=== PATIENT | female | born 1990 | race Caucasian/White ===

== ENCOUNTER 2018-04-17 10:36 | Emergency (ER) | payer OTHER ==
[2018-04-17 10:47] VITALS: BP 95/59
--- NOTE | 2018-04-17 11:05 | ED Physician Documentation ---
General Adult - HISTORIAN Historian: patient - HPI Stated Complaint: Headache Chief Complaint: General Adult Additional Information: 27yo female who states that for the last 10 days she has been having some generalized intermittent abdominal pain that seems to move around. Patient states that her last BM was yesterday and was normal. No N/V/D noted. No blood in stools. Patient has also been having some headaches, bilateral, intermittent. No change in motor or sensory noted. No precipitating or modifying factors for headaches or abdominal pain noted. 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 Works in a kitchen at the [employer] and is concerned that she might be getting dehydrated or to hot. Onset: days ago (10 days) Timing: still present Severity: mild Modifying Factors: none Context: no precipitating factors Further Comments: no - ROS CONST: no problems. denies: fever (has felt hot but no fever noted), sweating, weakness CVS/RESP: cough (mild nonproductive). denies: chest pain, shortness of breath GI/: abdominal pain. denies: problems urinating, vomiting, nausea, diarrhea, black stools MS/SKIN/LYMPH: joint pain. denies: calf pain - PAST HX Past History: none Other History: none Surgeries/Procedures: none Immunizations: referred to PCP Allergies/Adverse Reactions: Allergies Allergy/AdvReac Type Severity Reaction Status Date / Time No Known Allergies Allergy Verified 04/17/18 10:55 Home Medications: Ambulatory Orders Medication Instructions Recorded NK [NK] 04/17/18 - SOCIAL HX Smoking History: greater than 1 pack/day (1ppd) Alcohol Use: none Drug Use: none - FAMILY HX Family History: No - VITAL SIGNS Vital Signs: Vital Signs Temp Pulse Resp BP Pulse Ox 98.2 F 85 16 95/59 85 L 04/17/18 10:40 04/17/18 10:40 04/17/18 10:40 04/17/18 10:40 04/17/18 10:40 - REVIEWED ASSESSMENTS Nursing Assessment Reviewed: Yes Vitals Reviewed: Yes ED Results Lab/Radiology - Orders Orders: ED Orders Category Date Time Status CBC/PLATELET/DIFF Routine Lab 04/17/18 Ordered CMP Routine Lab 04/17/18 Ordered URINALYSIS Routine Lab 04/17/18 Uncollected General Adult Physical Exam - PHYSICAL EXAM GENERAL APPEARANCE: mild distress EENT: eye inspection normal, ENT inspection normal, pharynx normal, JESSICA, no nystagmus, TM's nml, scleral icterus, pale conjunctivae, EOM palsy, papilledema. No: pharyngeal erythema, purulent nasal drainage, dry mucous membranes NECK: thyroid normal, supple. No: lymphadenopathy RESPIRATORY: no resp distress, chest non-tender CVS: reg rate & rhythm, heart sounds normal, equal pulses, no murmur, no gallop , PMI nml, no JVD ABDOMEN: soft, no organomegaly, normal bowel sounds, no abdominal bruit, abnormal bowel sounds, prominent aortic pulsatio, increased BS, decreased BS BACK: normal inspection, no CVA tenderness SKIN: warm/dry, normal color EXTREMITIES: non-tender, no evidence of injury. No: no edema NEURO: oriented X3, CN's nml as tested, motor nml, sensation nml, mood/affect nml Discharge Clincal Impression: Viral gastroenteritis Hematuria Qualifiers: Hematuria type: benign essential microscopic Qualified Code(s): R31.1 - Benign essential microscopic hematuria Referrals: Dionicio Mcdaniel MD [Primary Care Provider] - 2 Days Additional Instructions: Try to drink a lot of fluids to stay well hydrated. Take some Tylenol or advil as needed for headache. If symptoms do not improve to see your primary care provider or return to the ED. Have your urine rechecked for blood next week by your primary care provider. Condition: Stable Disposition: 01 HOME, SELF-CARE Palliative/Comfort Care: Hospice Care Decision to Admit: NO Date of Decison to Admit: 04/17/18 Decision Time: 11:10
[2018-04-17 11:48] LABS: eGFR (African) > 60; eGFR (Non-African) > 60
[2018-04-17 13:15] LABS: BASOPHILS % 0.6 (0.0-1.5); EOSINOPHILS % 1.1 % (0.0-6.8); MEAN CORPUSCULAR HEMOGLOBIN 31.1 pg (28.0-34.0); MEAN CORPUSCULAR VOLUME 95.3 fl (80.0-100.0); MONOCYTES % 4.5 % (0.0-11.0); NEUTROPHILS # 4.4 # k/uL (1.4-7.7)
== END 2018-04-17 12:46 | disposition home or self-care (01) ==
LOC: ED 10:36
DX: A08.4 Viral intestinal infection, unspecified (principal); R31.1 Benign essential microscopic hematuria
CPT/HCPCS: 80053; 85025; 99283

== ENCOUNTER 2018-05-08 17:26 | Emergency (ER) | payer OTHER ==
[2018-05-08 18:43] LABS: BASOPHILS % 0.6 (0.0-1.5); EOSINOPHILS % 1.8 % (0.0-6.8); MEAN CORPUSCULAR HEMOGLOBIN 30.8 pg (28.0-34.0); MEAN CORPUSCULAR VOLUME 94.4 fl (80.0-100.0); MONOCYTES % 5.8 % (0.0-11.0); NEUTROPHILS # 4.1 # k/uL (1.4-7.7)
[2018-05-08 18:51] LABS: eGFR (African) > 60; eGFR (Non-African) > 60
--- NOTE | 2018-05-08 19:21 | Diagnostic Imaging Report ---
[place] [facility] [id number] Replaced By [facility] [address] [place], [place]. [address] Report Submission Date: May 08, 2018 7:15:28 PM CDT Patient Study Name: YONI OBANDO Date: May 08, 2018 6:52:32 PM CDT Modality Type: CT\SR Gender: F Description: CT ABD PELVIS W/ CON : 86 Institution: [facility] Physician: NAHOMI [place] CT Abdomen/pelvis with contrast History: LOWER LEFT ABDOMEN/PELVIS PAIN RADIATES TO BACK X 2 MONTHS (Hx) / ITS.REASON LOWER BACK AND PELVIC PAIN (DICOM Hx) No comparison studies Nodular peripheral left pleural thickening measures 8 mm. Minimal basilar atelectasis. Right pleural base nodule measures 4 mm. No free intraperitoneal air. Multilevel thoracolumbar spondylosis The liver, gallbladder, spleen adrenal glands, pancreas are within normal limits. The kidneys enhance symmetrically. No obvious hydronephrosis Distended urinary bladder. Prominent endometrial canal of the uterus. Bilateral adnexal cysts, largest on the left measures 3 cm with wall thickening. Small amount of free fluid is present in the pelvis. No obvious bowel obstruction. Impression: 1. Small amount of free fluid in the pelvis. Bilateral adnexal cysts, left adnexal cyst demonstrates wall enhancement, this may represent a corpus luteal cyst in the appropriate context. Prominent medial canal. Consider pelvic ultrasound is needed. 2. No biliary dilatation. No hydronephrosis. The appendix is difficult to visualize in its entirety, appears to be within normal limits. No localized abscess in the right lower abdomen. 3. Bibasilar nodular pleural thickening, attention on followup. Electronically signed on May 08, 2018 7:15:28 PM CDT by: Miley AMAYA
[2018-05-09 00:41] VITALS: BP 108/72
--- NOTE | 2018-05-09 00:41 | ED Physician Documentation ---
General Adult - HISTORIAN Historian: patient - HPI Chief Complaint: Low Back Pain/ Injury Additional Information: 1 month history of lower back pain. No precipitating factor noted. Usually will start when she finishes her menstrual cycle. Tylenol seems to help some but does not last. Patient also complains of some intermittent abd pain. Moves around no precipitating factor. No modifying factors noted. Onset: other (about a month ago) Timing: still present, pain intermittent Severity: moderate Modifying Factors: ? menstrual period Quality: achy - ROS CONST: no problems. denies: fever, chills GI/: abdominal pain. denies: problems urinating, vomiting, nausea, diarrhea, black stools - PAST HX Past History: none Other History: none Surgeries/Procedures: other (shoulder surgery) Allergies/Adverse Reactions: Allergies Allergy/AdvReac Type Severity Reaction Status Date / Time amoxicillin [From Augmentin] AdvReac Abdominal Verified 05/08/18 18:21 Pain clavulanic acid AdvReac Abdominal Verified 05/08/18 18:21 [From Augmentin] Pain Home Medications: Ambulatory Orders Medication Instructions Recorded Diclofenac Sodium [Voltaren] 50 mg PO BID PRN #30 tablet. 05/08/18 - SOCIAL HX Smoking History: less than 1 pack/day Alcohol Use: none Drug Use: none - FAMILY HX Family History: No - VITAL SIGNS Vital Signs: Vital Signs Temp Pulse Resp BP Pulse Ox 95/59 04/17/18 12:46 - REVIEWED ASSESSMENTS Nursing Assessment Reviewed: Yes Vitals Reviewed: Yes ED Results Lab/Radiology - Radiology Radiology Impressions: CT Abdomen/pelvis with contrast History: LOWER LEFT ABDOMEN/PELVIS PAIN RADIATES TO BACK X 2 MONTHS (Hx) / ITS.REASON LOWER BACK AND PELVIC PAIN (DICOM Hx) No comparison studies Nodular peripheral left pleural thickening measures 8 mm. Minimal basilar atelectasis. Right pleural base nodule measures 4 mm. No free intraperitoneal air. Multilevel thoracolumbar spondylosis The liver, gallbladder, spleen adrenal glands, pancreas are within normal limits. The kidneys enhance symmetrically. No obvious hydronephrosis Distended urinary bladder. Prominent endometrial canal of the uterus. Bilateral adnexal cysts, largest on the left measures 3 cm with wall thickening. Small amount of free fluid is present in the pelvis. No obvious bowel obstruction. Impression: 1. Small amount of free fluid in the pelvis. Bilateral adnexal cysts, left adnexal cyst demonstrates wall enhancement, this may represent a corpus luteal cyst in the appropriate context. Prominent medial canal. Consider pelvic ultrasound is needed. 2. No biliary dilatation. No hydronephrosis. The appendix is difficult to visualize in its entirety, appears to be within normal limits. No localized abscess in the right lower abdomen. 3. Bibasilar nodular pleural thickening, attention on followup. General Adult Physical Exam - PHYSICAL EXAM GENERAL APPEARANCE: mild distress EENT: ENT inspection normal, pharynx normal NECK: normal inspection, supple RESPIRATORY: no resp distress, chest non-tender, breath sounds normal. No: wheezes, rales, rhonchi CVS: reg rate & rhythm, heart sounds normal, equal pulses, no murmur ABDOMEN: soft, no organomegaly, normal bowel sounds, no abdominal bruit, no distension, non-tender, tenderness (LLQ area/pelvic area). No: mass BACK: no CVA tenderness, other (FROM, mild tenderness tot he olwoer back area, no bony abnl noted) SKIN: warm/dry EXTREMITIES: non-tender, normal range of motion NEURO: oriented X3, mood/affect nml, cognition normal Discharge Clincal Impression: Left ovarian cyst, Lung nodule, solitary Low back pain Qualifiers: Chronicity: acute Back pain laterality: midline Sciatica presence: without sciatica Qualified Code(s): M54.5 - Low back pain Prescriptions: Diclofenac Sodium [Voltaren] 50 mg PO BID PRN #30 tablet.dr AZUL Reason: Pain Referrals: Dionicio Mcdaniel MD [Primary Care Provider] - 2 Days Additional Instructions: Take Diclofenac 50mg twice a day with food as needed for pain. Do back exercises. Follow-up with your primary care provider for your lung nodule and avarian cyst within the next 1 month. Condition: Stable Disposition: 01 HOME, SELF-CARE Decision to Admit: NO Date of Decison to Admit: 05/08/18 Decision Time: 19:41
== END 2018-05-08 20:00 | disposition home or self-care (01) ==
LOC: ED 17:26
DX: M54.5 Low back pain (principal); N83.202 Unspecified ovarian cyst, left side; R91.1 Solitary pulmonary nodule
CPT/HCPCS: 74177; 80053; 84703; 85025; 99284; Q9967; S1016

== ENCOUNTER 2019-02-15 14:19 | Emergency (ER) | payer OTHER ==
[2019-02-15 14:46] VITALS: BP 113/74
--- NOTE | 2019-02-15 16:35 | ED Physician Documentation ---
Female Urogenital Problems - HISTORIAN Historian: patient - HPI Stated Complaint: vaginal itch Chief Complaint: Female Urogenital Problems Onset: days ago Further Comments: yes (28 year old female patient presents with complaint of vaginal pain, edema and blistering. Patient states she was seen by Dr Herman on 02/12/19 for vaginal discharge, was started on Terconazole cream. Patient states itching, pain, blisters and swelling started on Tuesday 02/13 and has become progressively worse. 31 weeks , reports active fetus. Patient denies history of genital herpes.) - Associated Symptoms Urinary Symptoms: none - ROS CONST: none GI/: denies: nausea, vomiting, decreased appetite, diarrhea, black stools, bloody stools, other CVS/RESP: none EYES/ENT: none NEURO/PSYCH: none MS/SKIN/LYMPH: none - PAST HX Past History: none Allergies/Adverse Reactions: Allergies Allergy/AdvReac Type Severity Reaction Status Date / Time amoxicillin [From Augmentin] AdvReac Abdominal Verified 02/15/19 14:56 Pain clavulanic acid AdvReac Abdominal Verified 02/15/19 14:56 [From Augmentin] Pain Home Medications: Ambulatory Orders Medication Instructions Recorded Pnv No.95/Ferrous Fum/Folic AC 1 each PO DAILY 02/15/19 [Prenavite Tablet] Terconazole 20 gm VG DAILY 02/15/19 Undecylenic Acid [Antifungal] 40 ml TP DAILY 02/15/19 Valacyclovir HCl [Valtrex] 1,000 mg PO BID #20 tablet 02/15/19 - SOCIAL HX Smoking History: cigarettes - FAMILY HX Family History: denies: none - VITAL SIGNS Vital Signs: Vital Signs Temp Pulse Resp BP Pulse Ox 96.9 F L 111 H 20 113/74 98 02/15/19 14:43 02/15/19 14:43 02/15/19 14:43 02/15/19 14:43 02/15/19 14:43 - REVIEWED ASSESSMENTS Nursing Assessment Reviewed: Yes Vitals Reviewed: Yes Progress - Progress Progress: [address] De Oliveira (PBX TEACHER) [address] De Oliveira - case discussed, recommended starting valtrex 1000mg bid, lidocaine ointment and spray, Tylenol #3 prn for pain. Extensive discussed with patient and regarding treatment and testing. Lab sent for HSV testing. Patient verbalized understanding, questions answered ED Results Lab/Radiology - Orders Orders: ED Orders Category Date Time Status HERPES SIMPLEX(HSV) 1&2 AB IGG Stat Lab 02/15/19 Ordered HERPES SIMPLEX(HSV) 1&2 IGM Stat Lab 02/15/19 Ordered Female Urogenital Problems - EXAM General Appearance: moderate distress EENT: eye inspection normal, JESSICA Respiratory: no resp. distress, breath sounds nml CVS: reg rate & rhythm, heart sounds normal, equal pulses, no murmur, no gallop, PMI nml, no JVD, no friction rub, 24 Abdomen: other (Protuberant, abdomen - FHT 115-120) Pelvic: other (external exam - labia with significant edema, multiple open v esicles noted, excoriation noted. ) Skin: color nml, no rash, warm,dry Extremities: non-tender, normal range of motion, no evidence of injury, no nabil Jo Ann hernandez, LAYOUT MECHANIC Neuro: oriented X3, motor nml, sensation nml, mood/affect nml Discharge Clincal Impression: Genital herpes affecting in third trimester Prescriptions: Valacyclovir HCl [Valtrex] 1,000 mg PO BID #20 tablet Referrals: Dionicio Mcdaniel MD [Primary Care Provider] - 2 Days Additional Instructions: Diagnosis: Genital Herpes verse Drug reaction STOP all ointments and creams to the vaginal area. STOP the Terconazole Start the Valtrex today. A prescription for lidocaine ointment for pain and pain medications have been prescribed. Make an appointment to see Dr Herman on Monday Ice as needed Cool fan or cool air to perineum 5 times a day Cotton panties No sexual intercourse until all blisters have healed. Blood testing results will be back on or Mon due to the holiday. Condition: Stable Disposition: HOME, SELF-CARE Decision to Admit: NO Decision Time: 16:34
[2019-02-15 17:25] LABS: APPEARANCE,URINE CLEAR (CLEAR); COLOR,URINE YELLOW (YELLOW)
[2019-02-15 17:26] LABS: UROBILINOGEN URINE 0.2 Eu (0.2-1.0)
[2019-02-15 17:31] LABS: OCCULT BLOOD,URINE 1+ (NEGATIVE)
== END 2019-02-15 16:46 | disposition home or self-care (01) ==
LOC: ED 14:19
DX: O98.313 Other infections with a predominantly sexual mode of transmission complicating pregnancy, third trimester (principal); A60.09 Herpesviral infection of other urogenital tract; Z3A.31 31 weeks gestation of pregnancy
CPT/HCPCS: 81002; 86694; 99283